=== PATIENT | male | born 1940 | race Caucasian/White ===

== ENCOUNTER → 2017-04-23 | Outpatient (CLI) | payer OTHER ==
--- NOTE | 2017-04-23 11:22 | KCIC ---
Carotid doppler ultrasound History: Bilateral carotid bruit Multiple grayscale, color, and duplex spectral analysis waveform sonographic images were acquired of the carotid, subclavian, and vertebral arteries. Comparison: September 12, 2014 Findings: RIGHT: PSV cm/sec EDV cm/sec Common carotid artery 67 12 Maximal internal carotid artery 110 22 External carotid artery 279 Vertebral artery 45 ICA/CCA ratio 1.6 LEFT: PSV cm/sec EDV cm/sec Common carotid artery 52 6 Maximum internal carotid artery 100 23 External carotid artery 152 Vertebral artery 26 ICA/CCA ratio 1.9 Velocities used to determine stenosis are known to correlate with NASCET angiographic criteria. There is antegrade flow in the bilateral vertebral arteries. There is hnvx-oz-okldhscv plaque of the bilateral carotid bulbs. Impression: 1. There is no evidence of a hemodynamically significant stenosis of the internal or common carotid arteries. There is plaque of the carotid bulbs bilaterally. There is velocity elevation of the external carotid arteries bilaterally greater on the left, suggestive of underlying stenoses. Electronically signed by: Toribio Iqbal MD (04/23/2017 11:19 AM) [id number]
== END | disposition home or self-care (01) ==
LOC: KCIC US 10:18
PROVIDERS: ATTEND Internal Medicine
DX: I65.23 Occlusion and stenosis of bilateral carotid arteries (principal)
CPT/HCPCS: 93880

== ENCOUNTER 2021-10-01 08:30 | Outpatient (CLI) | payer MEDICARE, OTHER ==
[~2021-10-01] VITALS: Ht 180.3 cm; Wt 90.9 kg
[2021-10-01] VITALS (10 sets, daily range): BP systolic 135–167; BP diastolic 51–76
[2021-10-01 09:46] LABS: BASO # 0.1 x10^3/uL (0.0-0.2); BASO % 1 % (0-3); EOS # 0.2 x10^3/uL (0.0-0.7); EOS % 3 % (0-3); HEMATOCRIT 42.8 % (39.0-53.0); HEMOGLOBIN 14.3 g/dL (13.0-17.5); LYMPH # 1.1 x10^3/uL (1.0-4.8); LYMPH % 18 % (24-48); MEAN CORPUSCULAR HEMOGLOBIN 30 pg (25-35); MEAN CORPUSCULAR HGB CONC 34 g/dL (31-37); MEAN CORPUSCULAR VOLUME 88 fL (79-100); MONO # 0.4 x10^3/uL (0.0-1.1); MONO % 7 % (0-9); NEUT # 4.4 x10^3/uL (1.8-7.7); NEUT % 71 % (31-73); PLATELET COUNT 242 x10^3/uL (140-400); RED BLOOD COUNT 4.84 x10^6/uL (4.30-5.70); RED CELL DISTRIBUTION WIDTH 14.2 % (11.5-14.5); WHITE BLOOD COUNT 6.1 x10^3/uL (4.0-11.0)
[2021-10-01 09:47] LABS: CALCIUM 8.8 mg/dL (8.5-10.1); GFR 71.5; POTASSIUM 4.1 mmol/L (3.5-5.1)
--- NOTE | 2021-10-01 09:53 | EKG ---
[facility] [address] [place] [id number] Test Date: 2021-10-01 Test Time: 09:49:08 Pat Name: KATHY FUNG Department: Room: Gender: [employer]: MAGDALENA : 1940 Requested By: BRONWYN ELLIS Order Number: [id number] Reading MD: Topher Sanchez MD Measurements Intervals [place] Rate: 61 P: 38 MA: 198 QRS: -20 QRSD: 98 T: -22 QT: 434 QTc: 438 Interpretive Statements SINUS RHYTHM VENTRICULAR PREMATURE COMPLEX(ES) Electronically Signed On 10-08-2021 9:45:34 CDT by Topher Sanchez MD
[2021-10-01 09:59] LABS: PROTHROMBIN TIME PATIENT 13.2 SEC (11.7-14.0)
[2021-10-01] MEDS ORDERED: LIDOCAINE WITH 8.4% SOD BICARB 3 ML DISP.SYRIN. ONE (10:08)
[2021-10-01] MEDS ORDERED: IODIXANOL 320 MG/ML 100 ML VIAL. ONE (10:09)
[2021-10-01] MEDS ORDERED: fentaNYL PF VIAL 100 MCG/2 ML VIAL ONE ×3 (10:11→11:53)
[2021-10-01] MEDS ORDERED: MIDAZOLAM HCL/PF 2 MG/2 ML VIAL. ONE ×2 (10:11→10:43)
[2021-10-01] MEDS ORDERED: HEPARIN for IV BOLUS 10,000 UNIT/10 ML VIAL. ONE (10:12)
[2021-10-01] MEDS ORDERED: fentaNYL PF VIAL 100 MCG/2 ML VIAL IV ONE (10:45)
[2021-10-01] MEDS ORDERED: CONTRAST GIVEN. MC PRN (10:45)
[2021-10-01] MEDS ORDERED: IODIXANOL 320 MG/ML 100 ML VIAL. IART ONE (10:45)
[2021-10-01] MEDS ORDERED: LIDOCAINE WITH 8.4% SOD BICARB 3 ML DISP.SYRIN. IJ ONE (10:45)
[2021-10-01] MEDS ORDERED: MIDAZOLAM HCL/PF 2 MG/2 ML VIAL. IV ONE (10:45)
[2021-10-01] MEDS: HEPARIN PF 500 UNIT/5 ML DISP.SYRIN. IVP ONE (11:30)
[2021-10-01] MEDS ORDERED: CLOP75TA PO (14:23)
[2021-10-01] MEDS ORDERED: HEPARIN for IV BOLUS 10,000 UNIT/10 ML VIAL. IV ONE (15:30)
--- NOTE | 2021-10-01 15:53 | NUR ---
Discharge Note: KATHY FUNG Discharge instructions and discharge home medications reviewed with Patient and a copy given. All questions have been answered and understanding verbalized. The following instructions and handouts were given: angiogram with stents,adult moderate sedation,peripheral artery disease,and plavix Discontinued lines and drains: Peripheral IV intact. Patient discharged to Home or Self Care withFamily Membervia Wheelchair. Dr. Snow came to bedside and explained stenting that was done and that he'll have the patient come back in 2 weeks to check on how his legs are feeling. Patient's son was present for explanation.
--- NOTE | 2021-10-02 14:19 | RAD ---
10/01/2021 1. Abdominal angiogram 2. Pelvic angiogram 3. Angiography of the bilateral lower extremities 4. Stenting of right external iliac artery 5. Stenting of the left common iliac artery 6. Stenting of the left external iliac artery Clinical indication: 81-year-old male with chronic bilateral lower extremity claudication, steadily w orsening over time. Symptomatic on both sides, but slightly worse on the right. No history of wounds. Patient overall healthy. Former smoker, quit many years ago. No history of diabetes, hypertension, o r significant hyperlipidemia according to patient. Consent: The procedure was explained in its entirety to the patient or the patients designated repres entative by a member of the treatment team, including a discussion of the risks, benefits and commonl y accepted alternatives to the procedure, as well as the expected consequences of no therapy whatsoev er. Discussion of the risks included, but was not limited to, those that are most frequent and thos e that are rare but possibly severe or life-threatening, as well as the possibility of unforeseen com plications. The patient was brought to the fluoroscopy suite and placed in the supine position. A timeout procedu re was performed. The left groin was prepped and draped using maximum sterile barrier technique. Ultr asound evaluation demonstrates a eccentric likely calcified left common femoral artery with mild [place] nal narrowing. The artery remain patent. The artery was accessed using micropuncture technique under direct ultrasound guidance and a reference ultrasound images were saved medical record. A 5 [place] Island[place] va scular sheath was placed. Catheter was advanced into the abdominal aorta. Abdominal aortic gram was obtained demonstrating diff use atherosclerotic calcification of the inferior abdominal aorta. No aneurysm is seen. No evidence o f dissection is seen. Catheter was repositioned in the inferior most abdominal aorta and pelvic angiography was obtained. T he right common femoral artery is patent. There is long segment high-grade, heavily calcified stenosi s involving the right external iliac artery. There is severe diffuse atherosclerotic vascular disease with multifocal calcification. Multifocal calcifications are seen in the right common femoral artery without hemodynamically significant stenosis. There is eccentric calcification resulting in 75% sten osis of the left common iliac artery. There is bulky calcification in the left external iliac artery with approximately 80-90% stenosis. The catheter was repositioned in the right common femoral artery. Angiograms of the right lower extre mity were then performed. The right superficial femoral artery demonstrates multifocal high-grade den sely calcified stenosis. There is occlusion of the [id number]-levq popliteal artery. Multiple well-dev eloped collaterals are seen reconstituting the peroneal artery on the right. Week reconstitution of t he anterior tibial artery is seen. Evaluation of runoff vessels is limited given the severity of infl ow disease. The right external iliac artery stenosis was treated by placement of an 8 mm self-expanding stent pos tdilated 8 mm. The left common iliac artery stenosis was treated with placement of a 10 mm oval extending stent was dilated to 10 mm. The diameter was markedly improved though persistent eccentric narrowing persisted despite repeat balloon dilatation. The patient's. Some discomfort with dilatation, therefore more agg ressive or hypertrophy dilatation was not performed. The left external iliac artery was treated with placement of an 8 mm self-expanding stent postdilated 8 mm. Left lower extremity angiography was performed through the sheath again demonstrating multifoc al high-grade stenosis throughout the SFA with occlusion of the distal SFA in the adductor canal. Occ lusion extends through the popliteal artery to level of the knee. Multiple multifocal well-developed collaterals are again noted. The sheath was removed. A minx device was deployed. Hemostasis was achieved. Sterile dressings were a pplied. No immediate complications were identified. Total fluoroscopy time 17 minutes Dose area product 448 [place] centimeter squared Sedation: The procedure was performed under conscious sedation including continuous cardiopulmonary m onitoring via a dedicated sedation nurse. Svid-da-[id number] sedation time:: 127 minutes IMPRESSION: 1. Severe diffuse atherosclerotic vascular disease involving bilateral aortoiliac segments, bilateral femoral popliteal segments, and bilateral runoff vessels, as detailed above. 2. During today's angiogram/intervention the and aortoiliac lesions were treated with right external iliac and left common and external iliac artery stents. This could yield significant improvement in i nflow. Given the severity of femoropopliteal calcified stenoses/occlusions, reconstruction of these a rteries would be challenging, with limited outflow given proximal tibial vessel occlusions and recons titution. Given the patient's age, presentation, lack of wounds or other changes of critical limb ischemia, and robust collateralization we decided to see the patient back in 4-6 weeks for clinical evaluation. T he patient was placed on Clopidogrel which he will continue until follow-up. Should his symptoms have significantly improved, or remain significantly burdensome, repeat angiogram and intervention to fur ther improve blood flow may be necessary. Electronically signed by: Mirza Snow MD (10/02/2021 2:17 PM) [id number]
== END 2021-10-01 16:02 | disposition home or self-care (01) ==
LOC: INTRAD 08:30
PROVIDERS: ATTEND Surgery
DX: I73.9 Peripheral vascular disease, unspecified (principal); I70.222 Atherosclerosis of native arteries of extremities with rest pain, left leg; E78.00 Pure hypercholesterolemia, unspecified; M19.90 Unspecified osteoarthritis, unspecified site; Z79.899 Other long term (current) drug therapy; Z98.890 Other specified postprocedural states
CPT/HCPCS: 36415; 37221; 37223; 75625; 75716; 76937; 80048; 85025; 85610; 93005; 99152; 99153; C1760; C1769; C1894; G0269; J1642; J1644; J2250; J3010; J3490; Q9967